=== PATIENT | female | born 1995 | race Caucasian/White ===

== ENCOUNTER → 2017-10-07 12:46 | Outpatient (CLI) | payer OTHER, SELFPAY ==
--- NOTE | 2017-10-07 | DI.MRI.S_ITS ---
PROCEDURE: MRFOOT LT WO CON INDICATIONS: LEFT FOOT PAIN. Subacute dorsal midfoot pain. TECHNIQUE: Noncontrast sagittal T1 spin echo and T2 fast spin echo with fat saturation, long-axis T1 spin echo and T2 fast spin echo with fat saturation, short-axis T1 spin echo and T2 fast spin echo with fat saturation through the forefoot. COMPARISON: None. FINDINGS: Image quality: Artifactual failure of fat suppression at the level of the distal toes, for example image 35 series 9 Bones and joints: No bone marrow contusions or metatarsal stress fractures. The sesamoid bones appear in expected positions, without internal edema. No metatarsophalangeal joint degeneration. No intraosseous lesions. Prominent fat signal intensity seen over the distal second metatarsal with slight contour bulge of the dorsal skin surface. Soft tissues: The visualized plantar foot muscles demonstrate normal signal and bulk. Visualized flexor and extensor tendons appear intact, without tenosynovitis. The distal insertions of the peroneus brevis and longus tendons appear intact. The principal Lisfranc ligament appears intact. No soft tissue ganglion cysts or bursal fluid collections. Sagittal images demonstrate no evidence for plantar plate tears. IMPRESSION: Minimal fluid between the first and second metatarsal heads raising possibility of intermetatarsal bursitis, however given the subtle MR appearance, recommend close clinical correlation to exam findings. Slight contour bulge of the dorsal skin surface of the forefoot (overlying the second metatarsal) although there is normal fat signal intensity. Technically, a tiny unencapsulated lipoma could be in this location. Dictated by: Nikhil Farias M.D. on 10/07/2017 at 14:13 Approved by: Nikhil Farias M.D. on 10/07/2017 at 14:22
== END ==
PROVIDERS: Visit Provider Family Medicine
DX: M79.672 Pain in left foot (principal)
CPT/HCPCS: 73718